=== PATIENT | male | born 2000 | race Caucasian/White ===

== ENCOUNTER 2025-04-12 01:34 | Emergency (ER) | payer SELFPAY ==
[2025-04-12 01:56] LABS: BASOPHILS ABSOLUTE AUTO 0.08 K/uL (0.00-0.20); BASOPHILS PERCENT AUTO 0.9 % (0.0-1.0); EOSINOPHILS ABSOLUTE AUTO 0.37 K/uL (0.00-0.45); EOSINOPHILS PERCENT AUTO 4.3 % (0.0-6.0); IMMATURE GRAN ABSOLUTE AUTO 0.01 K/uL (0.00-0.05); IMMATURE GRAN PERCENT AUTO 0.1 % (0.0-0.4); LYMPHOCYTES ABSOLUTE AUTO 4.25 K/uL (1.00-4.80); LYMPHOCYTES PERCENT AUTO 49.2 % (24.0-44.0); MEAN PLATELET VOLUME 11.0 fL (9.4-12.4); MONOCYTES ABSOLUTE AUTO 0.60 K/uL (0.00-0.80); MONOCYTES PERCENT AUTO 7.0 % (0.0-8.0); NEUTROPHILS ABSOLUTE AUTO 3.32 K/uL (1.80-7.70); NEUTROPHILS PERCENT AUTO 38.5 % (41.0-71.0); NRBC ABSOLUTE 0.00 K/uL (0.00-0.02); NRBC PERCENT 0.0 /100WBC (0.0-0.2); PLATELET COUNT,PLT 207 K/uL (150-400); RED BLOOD CELL COUNT 4.60 M/uL (4.52-5.90); WHITE BLOOD CELL COUNT,WBC 8.63 K/uL (3.9-11.3)
[2025-04-12 02:05] LABS: INR 0.94 (0.86-1.11); PTT,PARTIAL THROMBOPLSTIN TIME 23.3 SEC (23.9-30.7)
[2025-04-12 02:09] LABS: A/G RATIO 1.4 (0.9-1.6); ALANINE AMINOTRANSFERASE,ALT 28.0 IU/L (14-63); ASPARTATE AMNIOTRANSFERASE,AST 27.0 IU/L (15-37); BILIRUBIN TOTAL 0.3 mg/dL (0.2-1.0); BLOOD UREA NITROGEN,BUN 23.0 mg/dL (7.0-18.0); CARBON DIOXIDE,CO2 23.1 mmol/L (21.0-32.0); CHLORIDE,CL 106.0 mmol/L (98-107); CREATININE 1.0 mg/dL (0.8-1.3); EST CRCL DRUG DOSING (CG) 101.02 mL/min; ETHANOL BLOOD MEDICAL 257.0 mg/dL; GLUCOSE RANDOM 98.0 mg/dL (74-106); POTASSIUM,K 3.8 mmol/L (3.5-5.1); PROTEIN TOTAL,TP 6.8 g/dL (6.4-8.2); SODIUM,NA 143.0 mmol/L (136-148)
[2025-04-12] MEDS: Iopamidol 755 MG/ML 500 ML Multipack Bottle IVPUSH ONE (02:12)
[2025-04-12 02:16] LABS: ESTIMATED GFR 106.0 mL/min (>60)
[2025-04-12] MEDS: Ondansetron 4 MG/2 ML SDV IVPUSH ONE (03:00)
[2025-04-12 03:02] LABS: GLUCOSE,URINE NEGATIVE (NEGATIVE); OCCULT BLOOD,URINE NEGATIVE (NEGATIVE)
[2025-04-12 03:04] LABS: APPEARANCE,URINE CLEAR
[2025-04-12 03:07] LABS: LACTIC ACID 2.1 mmol/L (0.4-2.0)
[2025-04-16 05:07] LABS: AMPHETAMINES Negative; BARBITURATES Negative; BENZODIAZEPINES Presumptivepos ng/mL; BUPRENORPHINE Negative; CANNABINOIDS Negative; COCAINE METABOLITES Negative; METHADONE Negative; METHAMPHETAMINE Negative; OPIATES Negative; OXYCODONE Negative; PHENCYCLIDINE Negative
[2025-04-20 14:02] LABS: 7-AMINOCLONAZEPAM,S/P <5 ng/mL; ALPHA-HYDROXYMIDAZOLAM,S/P,QNT <20 ng/mL; ALPHA-OH-ALPRAZOLAM,S/P <5 ng/mL; ALPRAZOLAM,S/P <5 ng/mL; CHLORDIAZEPOXIDE,S/P,QNT <20 ng/mL; CLONAZEPAM,S/P <5 ng/mL; DIAZEPAM,S/P <5 ng/mL; LORAZEPAM,S/P <20 ng/mL; MIDAZOLAM,S/P <20 ng/mL; NORDIAZEPAM,S/P <20 ng/mL; OXAZEPAM,S/P <20 ng/mL; TEMAZEPAM,S/P <20 ng/mL
== END 2025-04-12 04:35 ==
LOC: MW.ED 01:34
DX: S06.5X5A Traumatic subdural hemorrhage with loss of consciousness greater than 24 hours with return to pre-existing conscious level, initial encounter (principal); S06.6X5A Traumatic subarachnoid hemorrhage with loss of consciousness greater than 24 hours with return to pre-existing conscious level, initial encounter; Y04.8XXA Assault by other bodily force, initial encounter; Y93.89 Activity, other specified
CPT/HCPCS: 36415; 70450; 70486; 71260; 72125; 74177; 80053; 80307; 80346; 81003; 83605; 85025; 85610; 85730; 86850; 86900; 86901; 96361; 96374; 96375; 99285; J1171; J2405; J7030; Q9967; 99284; G0480